=== PATIENT | female | born 1980 | race American Indian/Alaskan Native ===

== ENCOUNTER 2017-01-27 16:19 | Emergency (ER) | payer OTHER ==
[2017-01-27 16:34] VITALS: BP 140/94; PULSE 70; RESP 18; TEMP 98; O2SAT 100
--- NOTE | 2017-01-27 16:52 | ED PDOC ---
Upper Extremity Pain/Injury Time Seen by Provider: 01/27/17 16:34 Chief Complaint (Nursing): Finger,Hand,&Wrist Chief Complaint (Provider): left wrist pain History Per: Patient History/Exam Limitations: no limitations Onset/Duration Of Symptoms: Days (x 1 week ) Additional Complaint(s): Sary Awad is a 37 year old female, with no previous medical history, who presents to the ED with complaints of left wrist pain after sustaining a fall 1 week ago. Patient reports pain with extension of the wrist but denies any numbness or tingling. PMD: none provided Past Medical History Reviewed: Historical Data, Nursing Documentation, Vital Signs Vital Signs: Last Vital Signs Temp 98 F 01/27/17 16:32 Pulse 70 01/27/17 16:32 Resp 18 01/27/17 16:32 BP 140/94 H 01/27/17 16:32 Pulse Ox 100 01/27/17 16:32 - Medical History PMH: HTN - Surgical History Surgical History: No Surg Hx - Family History Family History: States: Unknown Family Hx - Allergies Allergies/Adverse Reactions: Allergies Allergy/AdvReac Type Severity Reaction Status Date / Time amoxicillin Allergy ITCHING Verified 01/27/17 16:32 Penicillins Allergy RASH Verified 01/27/17 16:31 Review of Systems ROS Statement: Except As Marked, All Systems Reviewed And Found Negative Musculoskeletal: Positive for: Hand Pain (left wrist pain ) Neurological: Negative for: Numbness, Other (tingling ) Physical Exam - Reviewed Nursing Documentation Reviewed: Yes Vital Signs Reviewed: Yes - Physical Exam Appears: Positive for: Well, Non-toxic, No Acute Distress Head Exam: Positive for: ATRAUMATIC, NORMAL INSPECTION, NORMOCEPHALIC Skin: Positive for: Normal Color, Warm, DRY Eye Exam: Positive for: Normal appearance ENT: Positive for: Normal ENT Inspection Neck: Positive for: Normal Respiratory: Negative for: Accessory Muscle Use, Respiratory Distress Pulses-Radial (L): 2+ Pulses-Radial (R): 2+ Extremity: Positive for: Normal ROM, Capillary Refill (< 2 seconds ). Negative for: Tenderness, Deformity, Swelling Neurologic/Psych: Positive for: Alert, Oriented, Gait - ECG O2 Sat by Pulse Oximetry: 100 (RA) Pulse Ox Interpretation: Normal Medical Decision Making Medical Decision Making: Initial Impression: Wrist sprain Initial Plan: * physical exam * disposition Scribe Attestation: Documented by Dayna Elena, acting as a scribe for Meredith Benitez PA-C. Provider Scribe Attestation: All medical record entries made by the Scribe were at my direction and personally dictated by me. I have reviewed the chart and agree that the record accurately reflects my personal performance of the history, physical exam, medical decision making, and the department course for this patient. I have also personally directed, reviewed, and agree with the discharge instructions and disposition. Disposition - Clinical Impression Clinical Impression: Wrist injury - Disposition Referrals: Les Brizuela MD [Staff Provider] - Disposition Time: 16:54 Condition: STABLE Additional Instructions: Ice, elevation, motrin with food. Instructions: Sprain (ED)
== END 2017-01-27 17:08 | disposition home or self-care (01) ==
LOC: H.ER 16:19
DX: M25.532 Pain in left wrist (principal); I10 Essential (primary) hypertension; Z88.0 Allergy status to penicillin

== ENCOUNTER 2017-02-26 19:13 | Emergency (ER) | payer OTHER ==
[2017-02-26 19:39] VITALS: BP 145/94; PULSE 77; RESP 16; TEMP 98.2; O2SAT 100
--- NOTE | 2017-02-26 20:05 | ED PDOC ---
HPI: Eye Injury/Pain Time Seen by Provider: 02/26/17 19:41 Chief Complaint (Nursing): Eye Problem Chief Complaint (Provider): Eye Problem History Per: Patient History/Exam Limitations: no limitations Onset/Duration Of Symptoms: Days (x2 days) Current Symptoms Are (Timing): Still Present Additional Complaint(s): 37 y/o female presents to the emergency department with a complaint of pain and swelling of the left upper eyelid for 2 days. Reports she woke up with the swelling the night before but felt like it worsens today. Denies taking medications for the relief of symptom or fever. Past Medical History Reviewed: Historical Data, Nursing Documentation, Vital Signs Vital Signs: Last Vital Signs Temp 98.2 F 02/26/17 19:36 Pulse 77 02/26/17 19:36 Resp 16 02/26/17 19:36 BP 145/94 H 02/26/17 19:36 Pulse Ox 100 02/26/17 19:36 - Medical History PMH: HTN - Surgical History Surgical History: No Surg Hx - Family History Family History: States: Unknown Family Hx - Home Medications Home Medications: Ambulatory Orders Medication Instructions Recorded Cephalexin [Keflex] 500 mg PO BID #20 capsule 02/26/17 Ibuprofen [Motrin Tab] 800 mg PO Q6H PRN #20 tab 02/26/17 Polymyxin/Trimethoprim Sulfate 1 drop XX Q6H 10 Days 02/26/17 [Polytrim Ophth Soln] - Allergies Allergies/Adverse Reactions: Allergies Allergy/AdvReac Type Severity Reaction Status Date / Time amoxicillin Allergy ITCHING Verified 01/27/17 16:32 Penicillins Allergy RASH Verified 01/27/17 16:31 Review of Systems ROS Statement: Except As Marked, All Systems Reviewed And Found Negative Constitutional: Negative for: Fever Eyes: Positive for: Pain (Left upper eyelid) Physical Exam - Reviewed Nursing Documentation Reviewed: Yes Vital Signs Reviewed: Yes - Physical Exam Appears: Positive for: Non-toxic, No Acute Distress Head Exam: Positive for: ATRAUMATIC, NORMAL INSPECTION, NORMOCEPHALIC Skin: Positive for: Normal Color, Warm, Dry Eye Exam: Positive for: EOMI (Intact. No pain with extraocular motion.), PERRL, Other (Swelling of the upper left eyelid. ). Negative for: Normal appearance, Periorbital swelling (or erythema) Neck: Positive for: Normal, Supple Neurologic/Psych: Positive for: Alert, Oriented - ECG O2 Sat by Pulse Oximetry: 100 (RA) Pulse Ox Interpretation: Normal Medical Decision Making Medical Decision Making: Time: 19:41 Initial Impression: Eye Irritation Initial Plan: --Antibiotic prescribed. --Information upon diagnosis was discussed with patient. Time: 20:00 --Patient told to apply warm compresses for the relief of pain. Upon provider reevaluation patient is medically stable, and requires no further treatment in the ED at this time. Patient will be discharged home with Rx for Keflex 500 mg, Motrin 800 mg, and Polytrim Ophth Soln. Counseling was provided and all questions were answered regarding diagnosis and need for follow up with Dr. Dangelo Wilson MD . There is agreement to discharge plan. Return if symptoms persist or worsen. Clinical Impression: Hordeolum of Upper eyelid Scribe Attestation: Documented by Ana Locke, acting as a scribe for Meredith Benitez PA-C. Provider Scribe Attestation: All medical record entries made by the Scribe were at my direction and personally dictated by me. I have reviewed the chart and agree that the record accurately reflects my personal performance of the history, physical exam, medical decision making, and the department course for this patient. I have also personally directed, reviewed, and agree with the discharge instructions and disposition. Disposition - Clinical Impression Clinical Impression: Hordeolum of upper eyelid - Patient ED Disposition Is Patient to be Admitted: No Counseled Patient/Family Regarding: Diagnosis, Need For Followup, Rx Given - Disposition Referrals: Dangelo Wilson MD [Staff Provider] - Disposition: Routine/Home Disposition Time: 20:00 Condition: STABLE Prescriptions: Cephalexin [Keflex] 500 mg PO BID #20 capsule Ibuprofen [Motrin Tab] 800 mg PO Q6H PRN #20 tab PRN Reason: Pain Polymyxin/Trimethoprim Sulfate [Polytrim Ophth Soln] 1 drop XX Q6H 10 Days Instructions: Ben (ED)
== END 2017-02-26 20:34 | disposition home or self-care (01) ==
LOC: H.ER 19:13
DX: H00.024 Hordeolum internum left upper eyelid (principal); I10 Essential (primary) hypertension; Z88.0 Allergy status to penicillin